=== PATIENT | female | born 2005 ===

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

== ENCOUNTER 2025-04-10 18:28 | Emergency (ER) | payer SELFPAY | END 2025-04-10 20:43 | disposition home or self-care (01) | LOC: DL.ED 18:28 | DX: S93.401A Sprain of unspecified ligament of right ankle, initial encounter (principal); F17.200 Nicotine dependence, unspecified, uncomplicated; Z79.899 Other long term (current) drug therapy; W10.8XXA Fall (on) (from) other stairs and steps, initial encounter; Y92.009 Unspecified place in unspecified non-institutional (private) residence as the place of occurrence of the external cause | CPT/HCPCS: 29515; 73610-RT; 99282; 99283 ==